=== PATIENT | male | born 1950 | race Caucasian/White ===

== ENCOUNTER 2017-02-12 18:36 | Emergency (ER) | payer MEDICARE, SELFPAY ==
[2017-02-12] MEDS ORDERED: HYDROcodone/Acetaminophen 10/325 mg Tablet ONE (19:21)
--- NOTE | 2017-02-12 20:07 | RAD ---
PORTABLE UPRIGHT FRONTAL CHEST RADIOGRAPH 02/12/17 COMPARISON: 02/05/05. HISTORY: Fall, trauma, pain. FINDINGS: The patient is rotated to the right. No pneumothorax, pleural fluid, focal consolidation or alveolar edema. Mild bilateral AC joint degenerative change. Mild prominence of the thoracic aorta, stable. IMPRESSION: No acute findings. POS: [facility]
[2017-02-12] MEDS ORDERED: Ketorolac Tromethamine 30 MG/ML VIAL ONE (20:29)
--- NOTE | 2017-02-12 21:08 | CT ---
HEAD CT WITHOUT CONTRAST 02/12/17 HISTORY: Fall, trauma, syncope, pain. TECHNIQUE: Serial axial CT imaging at 5 mm intervals from vertex through skull base without contrast. FINDINGS: There is partial opacification of bilateral ethmoid air cells and maxillary sinuses. there is atheros clerotic calcification of the cavernous carotid arteries. No displaced calvarial fracture, intracranial hemorrhage, midline shift, or mass effect seen. IMPRESSION: No intracranial hemorrhage or displaced calvarial fracture. POS: [facility]
--- NOTE | 2017-02-16 13:25 | EKG ---
Test Reason : Blood Pressure : / mmHG Vent. Rate : 080 BPM Atrial Rate : 080 BPM P-R Int : 152 ms QRS Dur : 098 ms QT Int : 388 ms P-R-T Axes : 062 052 193 degrees QTc Int : 447 ms Normal sinus rhythm Abnormal ECG Confirmed by JANEL TOMLINSON MD ([id number]), desk editor LUKASZ MONTESINOS ([id number] on 02/16/2017 1:25:26 PM Referred By: Confirmed By:JANEL TOMLINSON MD
== END 2017-02-12 20:56 | disposition home or self-care (01) ==
LOC: ERS 18:36
DX: S61.512A Laceration without foreign body of left wrist, initial encounter (principal); S61.212A Laceration without foreign body of right middle finger without damage to nail, initial encounter; S20.312A Abrasion of left front wall of thorax, initial encounter; E11.9 Type 2 diabetes mellitus without complications; I10 Essential (primary) hypertension; Z79.84 Long term (current) use of oral hypoglycemic drugs; Z79.899 Other long term (current) drug therapy; W10.9XXA Fall (on) (from) unspecified stairs and steps, initial encounter
CPT/HCPCS: 70450; 71010; 93005; 96372; J1885

== ENCOUNTER 2018-09-13 15:11 | Outpatient (CLI) | payer MEDICARE ==
[~2018-09-13 15:11] MED LIST: Iopamidol 370 76% 100 ML VIAL ONE
--- NOTE | 2018-09-13 17:23 | CT ---
EXAM: CT ANGIOGRAM OF THE ABDOMINAL AORTA WITH BILATERAL LOWER EXTREMITY RUNOFF: 09/13/18 HISTORY: Bilateral lower extremity stents. Left leg pain. COMPARISON: None. TECHNIQUE: CT angiogram of the abdominal aorta and bilateral extremities is performed in the axial plane. Three dimensional reformatted images are submitted for interpretation. FINDINGS: ABDOMEN CT: Dependent atelectatic changes. Normal heart size. No significant pericardial fluid. There is appropriate arterial phase enhancement of the liver, spleen, pancreas, and right adrenal gla nd. There is a mass associated with the left adrenal gland with an attenuation coefficient of 31 Houn sfield units, measuring 3.0 x 2.0 cm. This lesion has been previously reported to be a benign adenoma . Symmetric enhancement of the kidneys. No obstructive uropathy. No gastrohepatic, retrocrural, or periportal lymphadenopathy. No mesenteric mass, lymphadenopathy, free air of free fluid. Limited evaluation of the alimentary canal by lack of oral contrast. No evidence of bowel obstruction . Ileocecal junction is normal. Normal caliber appendix. Scattered fecal material in a nondistended, nondilated colon. Diverticulosis, without evidence of diverticulitis. CT PELVIS: No mass, lymphadenopathy, free air or free fluid. There are no lytic or blastic lesions in the visualized osseous structures. There is atherosclerosis of a nonaneurysmal aorta. There is atherosclerosis without significant narrowing of the celiac artery origin and superior mesen teric artery origin. There is short segment moderate stenosis involving the proximal superior mesente shanna artery. The distal superior mesenteric artery and its proximal branches are patent. Inferior mese nteric artery is patent. There is atherosclerosis involving the left and right renal arteries. No sig nificant stenosis. There is appropriate enhancement of the distal abdominal aorta and aortic bifurcation. Atherosclerosi s without significant stenosis in proximal internal iliac arteries. There is a stent in the right ext ernal iliac artery which appears to be patent. Atherosclerosis in both external iliac arteries with m ild narrowing. There is also evidence of atherosclerosis involving distal external iliac arteries wit h a short segment stent in the right external iliac artery just proximal to the inguinal canal. RIGHT LOWER EXTREMITY: There is atherosclerosis with mild narrowing of the common femoral artery. Profunda femoral artery is patent. There is multisegment mild to moderate stenosis in the proximal superficial femoral artery. There is short segment severe stenosis in the mid superficial femoral artery. Popliteal artery is pat ent. Arterial trifurcation demonstrates a patent posterior tibial artery. There is multifocal disease of the anterior tibial artery. LEFT LOWER EXTREMITY: There is atherosclerosis in the common femoral artery. There is a stent in the proximal superficial f emoral artery. Profunda femoral artery is patent. Additional stents are noted throughout the superfic ial femoral artery, all of which appear to be patent. Popliteal artery is patent with mild atheroscle rotic disease. The arterial trifurcation demonstrates a patent anterior tibial and posterior tibial a rtery. IMPRESSION: Extensive atherosclerotic disease involving both lower extremities with multiple stents as described above. POS: [facility]
== END 2018-09-13 15:12 | disposition home or self-care (01) ==
LOC: CT 15:11
PROVIDERS: ATTEND Thoracic Surgery (Cardiothoracic Vascular Surgery)
DX: I70.213 Atherosclerosis of native arteries of extremities with intermittent claudication, bilateral legs (principal)
CPT/HCPCS: 75635; 82565; Q9967